=== PATIENT | female | born 1945 | race Caucasian/White ===

== ENCOUNTER 2023-10-09 14:26 | Outpatient (CLI) | payer MEDICARE, OTHER, SELFPAY ==
[2023-10-09 14:55] LABS: Basophils # 0.1 K/mm3 (0-0.2); Basophils % 0.6 % (0.1-2.0); Eosinophils # 0.2 K/mm3 (0.0-0.4); Eosinophils % 2.9 % (0.1-12.0); Hematocrit 42.6 % (37.0-47.0); Hemoglobin 13.3 g/dL (12.2-16.2); Lymphocytes % 13.3 % (10-50); Mean Corpuscular HGB Conc 31.2 g/dL (31.8-35.4); Mean Corpuscular Hemoglobin 28.7 pg (27.0-31.2); Mean Corpuscular Volume 91.8 fl (81-99); Mean Platelet Volume 8.5 fl (7.4-10.4); Monocytes # 0.3 K/mm3 (0.1-1.0); Neutrophils % 79.1 % (37.0-80.0); Platelet Count 215 K/mm3 (142-424); Red Blood Count 4.64 M/mm3 (4.20-5.40); Red Cell Distribution Width 15.4 % (11.5-17.5); White Blood Count 7.6 K/mm3 (4.8-10.8)
[2023-10-09 15:45] LABS: Alanine Aminotransferase 16 U/L (12-78); Albumin Level 4.4 g/dl (3.5-5.0); Alkaline Phosphatase 106 U/L (38-126); Anion Gap 16.4 mEq/L (5-15); Aspartate Amino Transferase 29 U/L (14-36); Bilirubin,Indirect 0.6 mg/dL (0.0-0.9); Bilirubin,Total 0.6 mg/dl (0.2-1.3); Bilirubin,Unconjugated 0.7 mg/dL (0.0-1.1); Blood Urea Nitrogen 23 mg/dl (7-17); Calcium 9.8 mg/dl (8.4-10.2); Carbon Dioxide 25 mmol/L (22.0-30.0); Chloride 105 mmol/L (98-107); Chol/HDL Ratio 3.4 (1-3.5); Cholesterol 124 mg/dl (140-200); Estimated Glomerular Filt Rate 48 ml/min (>60); GFR (African American) 58 ML/MIN (>60); Glucose 86 mg/dl (74-100); HDL Cholesterol 36 mg/dl (40-60); Magnesium 2.1 mg/dl (1.6-2.3); Potassium 4.4 mmoL/L (3.5-5.1); Sodium 142 mmol/L (136-145); Total Protein,Serum 7.4 g/dl (6.3-8.2); Triglycerides 148 mg/dl (30-150); VLDL Cholesterol 30 mg/dL (0-40)
[2023-10-09 15:56] LABS: Direct LDL Cholesterol 63.81 mg/dL (100-129)
[2023-10-09 16:00] LABS: Free T4 (Free Thyroxine) 1.12 ng/dl (0.78-2.19)
[2023-10-09 16:15] LABS: Thyroid Stimulating Hormone 0.35 uIU/mL (0.465-4.68)
[2023-10-21 14:11] LABS: Metanephrine Plasma < 25.0 pg/mL (0.0-88.0); Normetanephrine Plasma 46.5 pg/mL (0.0-285.2)
[2023-11-02 10:25] LABS: Renin 4.549
== END 2023-10-09 23:59 | disposition home or self-care (01) ==
LOC: LAB 14:28
PROVIDERS: PCP Nurse Practitioner Family; Visit Provider Internal Medicine
DX: R42 Dizziness and giddiness (principal); R53.83 Other fatigue; R00.2 Palpitations; I34.81 Nonrheumatic mitral (valve) annulus calcification; R06.09 Other forms of dyspnea; R94.31 Abnormal electrocardiogram [ECG] [EKG]; I10 Essential (primary) hypertension; E11.9 Type 2 diabetes mellitus without complications; Z79.4 Long term (current) use of insulin; Z79.84 Long term (current) use of oral hypoglycemic drugs
CPT/HCPCS: 36415; 80048; 80061; 80076; 82088; 82384; 83735; 83835; 84244; 84439; 84443; 85025

== ENCOUNTER → 2023-10-10 08:59 | Outpatient (CLI) | payer MEDICARE, OTHER, SELFPAY | LOC: SL 09:02 | PROVIDERS: PCP Nurse Practitioner Family; Visit Provider Nurse Practitioner Family | DX: G47.30 Sleep apnea, unspecified (principal); R06.83 Snoring; R40.0 Somnolence | CPT/HCPCS: G0399 ==

== ENCOUNTER 2023-10-15 15:40 | Outpatient (CLI) | payer MEDICARE, OTHER, SELFPAY | END 2023-10-15 23:59 | disposition home or self-care (01) | LOC: RT 15:43 | PROVIDERS: PCP Internal Medicine Adolescent Medicine; Visit Provider Internal Medicine | DX: R00.2 Palpitations (principal) ==

== ENCOUNTER 2023-10-21 12:07 | Outpatient (CLI) | payer MEDICARE, OTHER, SELFPAY ==
[2023-10-21 13:32] LABS: Basophils % 0.6 % (0.1-2.0); Eosinophils # 0.2 K/mm3 (0.0-0.4); Hematocrit 36.7 % (37.0-47.0); Hemoglobin 13.4 g/dL (12.2-16.2); Lymphocytes # 0.8 K/mm3 (0.7-4.5); Lymphocytes % 13.6 % (10-50); Mean Corpuscular HGB Conc 36.4 g/dL (31.8-35.4); Mean Corpuscular Hemoglobin 33.4 pg (27.0-31.2); Mean Corpuscular Volume 91.8 fl (81-99); Mean Platelet Volume 8.2 fl (7.4-10.4); Monocytes # 0.3 K/mm3 (0.1-1.0); Monocytes % 4.6 % (1.7-9.3); Neutrophils # 4.5 K/mm3 (1.8-7.8); Neutrophils % 77.3 % (37.0-80.0); Platelet Count 238 K/mm3 (142-424); Red Cell Distribution Width 15.3 % (11.5-17.5); White Blood Count 5.9 K/mm3 (4.8-10.8)
[2023-10-21 14:04] LABS: Alanine Aminotransferase 19 U/L (12-78); Albumin Level 4.1 g/dl (3.5-5.0); Alkaline Phosphatase 105 U/L (38-126); Anion Gap 15.9 mEq/L (5-15); Aspartate Amino Transferase 24 U/L (14-36); Bilirubin,Indirect 0.6 mg/dL (0.0-0.9); Bilirubin,Total 0.6 mg/dl (0.2-1.3); Bilirubin,Unconjugated 0.6 mg/dL (0.0-1.1); Blood Urea Nitrogen 35 mg/dl (7-17); Calcium 9.8 mg/dl (8.4-10.2); Carbon Dioxide 26 mmol/L (22.0-30.0); Chloride 99 mmol/L (98-107); Chol/HDL Ratio 3.7 (1-3.5); Cholesterol 134 mg/dl (140-200); Estimated Glomerular Filt Rate 44 ml/min (>60); GFR (African American) 53 ML/MIN (>60); Glucose 214 mg/dl (74-100); HDL Cholesterol 36 mg/dl (40-60); Magnesium 2.1 mg/dl (1.6-2.3); Potassium 4.9 mmoL/L (3.5-5.1); Sodium 136 mmol/L (136-145); Total Protein,Serum 7.2 g/dl (6.3-8.2); Triglycerides 209 mg/dl (30-150); VLDL Cholesterol 42 mg/dL (0-40)
[2023-10-21 14:21] LABS: Free T4 (Free Thyroxine) 1.02 ng/dl (0.78-2.19)
[2023-10-21 14:36] LABS: Thyroid Stimulating Hormone 0.38 uIU/mL (0.465-4.68)
[2023-10-24 06:51] LABS: Dopamine, Plasma < 30 pg/mL (0-48); Epinephrine, Plasma 35 pg/mL (0-62); Norepinephrine, Plasma 333 pg/mL (0-874)
[2023-10-28 15:10] LABS: Normetanephrine Plasma 67.6 pg/mL (0.0-285.2)
[2023-12-09 09:57] LABS: Renin Activity, Plasma 12.373
== END 2023-10-21 23:59 | disposition home or self-care (01) ==
LOC: LAB 12:09
PROVIDERS: PCP Internal Medicine Adolescent Medicine; Visit Provider Internal Medicine
DX: I10 Essential (primary) hypertension (principal); R06.02 Shortness of breath; R42 Dizziness and giddiness; R53.83 Other fatigue; R00.2 Palpitations; I34.81 Nonrheumatic mitral (valve) annulus calcification; E13.9 Other specified diabetes mellitus without complications; R94.31 Abnormal electrocardiogram [ECG] [EKG]
CPT/HCPCS: 36415; 80048; 80061; 80076; 82088; 82384; 83735; 83835; 84244; 84439; 84443; 85025

== ENCOUNTER 2023-10-23 07:41 | Outpatient (CLI) | payer MEDICARE, OTHER, SELFPAY ==
[2023-10-23] VITALS (7 sets, daily range): BP systolic 128–176; BP diastolic 67–86; PULSE 50–84; RESP 16; O2SAT 95–97; BMI 34.0
--- NOTE | 2023-10-23 07:41 | CA_ITS ---
APPROVED REPORT EXAM: Comprehensive 2D, Doppler, and color-flow Echocardiogram Manager Event: PAM Carcamo, RVS Ht: 5 ft 2 in Wt: 186lbs BSA: 1.85 BP: 213/103 mmHg Indications: SOB, Palpitations, Abn EKG, Melanoma, HTN, DM, Fatigue 2D Dimensions Left Atrium 3.20 cm LA Volume 77.00 mL LA Volume Index 40.50 mL/m2 (M/F) 16-34 M-Mode Dimensions RVDd 2.28 cm (0.9-2.6) LA Diam 2.17 cm (1.9-4.0) LVDd 5.38 cm (3.5-5.7) LVDs 3.56 cm (3.5-5.7) IVSd 0.99 cm (0.6-1.1) PWd 1.02 cm (0.6-1.1) EF (Teich) 62.20% EPSs 2.00 cm FS 33.80% EDV (Teich) 140.10 mL TAPSE 1.26 (<1.7) ESV (Teich) 53.00 mL LV Diastology E Decel Time 247 (160-240 msec) E/A Ratio 0.64 MED A' 9.70 cm/s LAT A' 11.10 cm/s Aortic Valve JALEN Index 1.25 cm2/m2 AoV Peak Jose. 129.0 (50-130 cm/s) AO Peak GR. 6.60 mmHg AO Mean GR. 3.40 (<5 mmHg) AO VTI 26.1 (18-25 cm) JALEN (VTI) 2.38 (2.5-4.5 cm2) Mitral Valve MV A Velocity 131.0 (40-130 cm/s) E/A Ratio 0.64 MV Mean Gr. 2.80 (<2mmHg) Pulmonary Valve PV Peak Velocity 94.0 (50-150 cm/s) Tricuspid Valve TR P. Velocity 205.00 cm/s RAP Estimate 10.00 mmHg RVSP 26.80 mmHg Left Ventricle The left ventricle is normal size. The left ventricular systolic function is normal. The left ventricular ejection fraction is within the normal range. There is increased LV wall thickness. There is normal LV segmental wall motion. Transmitral Doppler flow pattern suggests impaired LV relaxation. LVEF is 60%. Right Ventricle The right ventricle is normal size. The right ventricular systolic function is normal. Atria Left atrium is moderately dilated. The right atrium size is normal. There is no Doppler evidence of interatrial shunt. Aortic Valve The aortic valve is mildly thickened. There is no aortic valvular stenosis. Trace aortic regurgitation. Mitral Valve Moderate mitral annular calcification. The mitral valve leaflets are mildly thickened. No evidence of mitral valve stenosis. Mean MV gradient 3 mmHg (HR 80 bpm). Trace mitral regurgitation. Tricuspid Valve The tricuspid valve leaflets are thin and pliable. Trace tricuspid regurgitation. RVSP is 15-20 mmHg. Pulmonic Valve The pulmonary valve is normal in structure. Trace pulmonic regurgitation. Great Vessels The aortic root is normal in size. The ascending aorta is not well-visualized. IVC is normal in size and collapses >50% with inspiration. Pericardium There is no pericardial effusion. Other Information Study Quality: Fair Conclusion Normal biventricular systolic function. Moderate LA dilation. Moderate mitral annular calcification. No significant valvular stenosis or regurgitation. Electronically signed by : Jena Marshall MD 10/29/2023 11:05:52
--- NOTE | 2023-10-23 08:11 | CT_ITS ---
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 A noncontrast coronary calcium scan was performed. A CT attenuation threshold of 130 Hounsfield units (HU) was used for the detection of calcium in contiguous voxels of 1 sq mm in area to be counted as individual lesions. Bolus tracking in the ascending aorta with a threshold of 180 HU was performed. Immediately afterwards, ECG synchronized cardiac CT was then performed from the cardiac base to apex using retrospective gating with ECG tube current modulation. A total of 85 mL of Isovue 370 mg/mL contrast medium was administered at 5 mL/sec followed by a saline flush using a biphasic injection protocol. A tube voltage of 120 KVp was used. The patient received the following medications prior to the cardiac CT. 25 mg of oral metoprolol 15 mg of oral ivabradine 0.8 mg of sublingual nitroglycerin The average heart rate at the time of acquisition was 56 bpm and regular. Image Reconstruction Transaxial images were reconstructed at 0.67 mm slide thickness. Data was reviewed interactively on an advanced workstation capable of 2 and 3-dimensional displays in all conventional reconstruction formats, including multiplanar reformations, maximum intensity projections, curved multiplanar reformations, and volume rendered reconstructions. When applicable, selected routine images describing the relevant coronary anatomy and pathology were saved and sent to PACS. Complications None Technical Quality Overall image quality was poor due to significant motion Coronary artery opacification was suboptimal. Total DLP (Dose-Length Product) is 2521.2 mGy-cm. The reported value represents the total of one or more individual components during the CT acquisition of this date and at this time, and as such, the same value may appear in more than one CT report depending on the interpreting/reporting physicians. COMPARISON None FINDINGS CT Coronary Calcium Scoring LMA (Left Main Artery) = 0 LAD (Left Anterior Descending) = 214 LCX (Left Coronary Circumflex) = 104 RCA (Right Coronary Artery) = 296 Total Calcium Score = 614 using the AJ-130 method. The observed calcium score of 614 is at 87th percentile for subjects of the same age, sex, and race/ethnicity. The interpretation of the calcium heart score is based on the following continuum*: 0 = no calcified plaque detected (risk of coronary artery disease is very low ??? less than 5%) 1-10 = calcium detected in extremely minimal levels (risk of coronary diseases is still low ??? less than 10%) 11-100 = mild levels of plaque detected with certainty (mild or minimal narrowing of heart arteries is likely) 101-400 = definite,at least moderate levels of plaque detected (relatively high risk of a heart attack within 3-5 years) >401-999 = extensive levels of plaque detected (high risk of heart attack, high levels of vascular disease are present, high likelihood of at least one significant coronary narrowing) *The calcium heart score quantifies the burden of coronary calcification/plaque in the coronary arteries. The calcium heart score is not able to evaluate the presence or burden of non-calcified (i.e. soft) plaque. There is also identifiable calcification in the mitral annulus or mitral valve and the ascending and descending thoracic aorta. Coronary CT Angiography The coronary arterial system is right dominant. Quantitative Stenosis Grading: Left Main (LM): The left main originates normally from the left sinus of Valsalva. The LM bifurcates into the left anterior descending artery and left circumflex artery. The LM is patent with no evidence of atherosclerosis. Left Anterior Descending (LAD) and Diagonal Branches: The LAD gives off 3 diagonal branch(es). There is mixed calcified/noncalcified plaque in the proximal LAD segment with up to 70-90% luminal stenosis. There is no evidence of LAD-myocardial bridge. Left Circumflex (LCX) and Obtuse Marginals (OM): The LCX gives off 1 Obtuse Marginal (OM) branch(es). There is mixed calcified/noncalcified plaque in the proximal and mid LCx segments, with up to 70-90% luminal stenosis. Right Coronary Artery (RCA): The RCA originates normally from the right sinus of Valsalva. The RCA gives off a posterior descending artery (PDA) and posterolateral (PL) branches. There is calcified plaque in the ostial RCA, as well as mixed calcified/noncalcified plaque in the proximal RCA segment. However, the remainder of the RCA cannot be well-visualized due to significant motion. Non-Coronary Cardiac Findings: Analysis of the left ventricular (LV) structure and function was performed after 3-D reconstruction of the LV from axial images, with user-corrected automatic contouring for assessment of LV volumes and user-defined reconstruction from oblique planes for measurement of 3-D cardiac structure and function. -The left ventricle systolic function is normal. -There is no left atrial appendage filling defect. Two right pulmonary veins and two left pulmonary veins drain normally into the left atrium. -No pericardial thickening or calcification. -Central and branch pulmonary arteries in the [id number] are unremarkable. -Thoracic aorta within the visualized thoracic aortic-branches in the [id number] is unremarkable. Extracardiac Structures No significant extra-cardiac findings. Note, however, that this study is focused on the cardiac findings. IMPRESSION -Technically difficult study due to significant motion and inability to visualize portions of the coronary tree. -Presence of coronary calcification with an Agatston score = 614 using the AJ-130 method. -The observed calcium score of 614 is at 87th percentile for subjects of the same age, sex, and race/ethnicity. -Multivessel atherosclerotic coronary disease, with significant flow-limiting atherosclerosis of the LAD and the LCx. The RCA also likely has significant atherosclerosis in the proximal region, but is not well-visualized due to significant motion. -CAD-RADS 4B. Management recommendations per ACC/AHA guidelines*, as clinically appropriate. *Recommendations: CAD RADS 0: Reassurance. Consider non-atherosclerotic causes of chest pain. CAD RADS 1: Consider non-atherosclerotic causes of chest pain. Consider preventive therapy and risk factor modification. CAD RADS 2: Consider non-atherosclerotic causes of chest pain. Consider preventive therapy and risk factor modification, particularly for patients with nonobstructive plaque in multiple segments. CAD RADS 3: Consider further functional testing. Consider symptom-guided anti-ischemic and preventive pharmacotherapy as well as risk factor modification per published guideline statements. CAD RADS 4A: Consider further functional testing or invasive coronary angiography with revascularization per published guideline statements. Consider symptom-guided anti-ischemic and preventive pharmacotherapy as well as risk factor modification per published guideline statements. CAD RADS 4B: Invasive coronary angiography recommended with revascularization per published guideline statements. Consider symptom-guided anti-ischemic and preventive pharmacotherapy as well as risk factor modification per published guideline statements. CAD RADS 5: Consider invasive angiography and/or viability assessment with revascularization per published guideline statements. Consider symptom-guided anti-ischemic and preventive pharmacotherapy as well as risk factor modification per published guideline statements. CRITICAL RESULT None COMMUNICATION Per this written report The coronary and cardiac findings of this CCTA were reviewed, reported, and signed by Haseeb Marshall MD (Panel Builder) Conclusion Electronically signed by : Jena Marshall MD 10/28/2023 12:17:51
[2023-10-23] MEDS: METOPROLOL TARTRATE 25MG TABLET 25 MG (09:00)
[2023-10-23] MEDS: IVABRADINE HCL 7.5MG TABLET PO (09:00)
[2023-10-23 09:04] LABS: POC Glucose,Bedside 125 (70-110)
[2023-10-23] MEDS: NITROGLYCERIN 0.4MG SL TABLET SL (09:27)
[2023-10-23] MEDS: METOPROLOL TARTRATE 5MG/5ML VIAL 5 MG IV (09:33)
[2023-10-23] MEDS: 0.9 % SODIUM CHLORIDE 50 ML VIAL IV (09:59)
[2023-10-23] MEDS: IOPAMIDOL-370 (76%);100ML BOTTLE 85 ML IV (09:59)
[2023-10-23] MEDS: SODIUM CHLORIDE 0.9% 10ML SYR (RAD ONLY) 10 ML IV (09:59)
== END 2023-10-23 10:30 | disposition home or self-care (01) ==
LOC: RT 07:41 → RAD 08:42
PROVIDERS: PCP Internal Medicine Adolescent Medicine; Visit Provider Internal Medicine
DX: R42 Dizziness and giddiness (principal); R53.83 Other fatigue; R00.2 Palpitations; I34.81 Nonrheumatic mitral (valve) annulus calcification; R06.09 Other forms of dyspnea; R94.31 Abnormal electrocardiogram [ECG] [EKG]; I10 Essential (primary) hypertension; R06.02 Shortness of breath; E11.9 Type 2 diabetes mellitus without complications; Z79.84 Long term (current) use of oral hypoglycemic drugs
CPT/HCPCS: 75574; 82962; 93306; Q9967

== ENCOUNTER 2023-11-20 08:28 | Day surgery (SDC) | payer MEDICARE, OTHER, SELFPAY ==
[2023-11-20] VITALS (14 sets, daily range): BP systolic 116–191; BP diastolic 54–98; PULSE 72–89; RESP 16–20; TEMP 36.6–36.7; O2SAT 92–99; BMI 34.2
--- NOTE | 2023-11-20 07:08 | IR_ITS ---
APPROVED REPORT Patient Location: Outpatient Nurse Practitioner Physician Assistant: HEIDY Young RT (R) PROCEDURES Left heart catheterization Left ventriculogram Selective coronary angiogram Drug-eluting stent deployment to the proximal and mid LAD Drug-eluting stent deployment to the circumflex arteries first obtuse marginal artery Drug-eluting stent deployment to the proximal and mid dominant right coronary Intravascular ultrasound of the right coronary INDICATION Coronary artery disease, Abnormal CCTA, IVUS guidance for complex angiography/stenting Informed consent was obtained prior to the procedure. COMPLICATIONS NONE Estimated Blood Loss: LESS THAN 10 ML TECHNIQUE One percent lidocaine used to anesthetize the right anterior aspect of the wrist. The right radial artery was accessed via the Seldinger technique. A 6 Mal[place]ian sheath was placed in the right radial artery. 2.5 mg of Verapamil, 800 mcg of nitroglycerin, 1mg Lidocaine and 5000 U Heparin were given through the arterial sheath. The papa catheter was also used to perform left heart catheterization, left ventriculogram and selective coronary angiogram. At the end of the diagnostic angiogram therapeutic heparin was administered giving a therapeutic ACT and the guide catheter was placed in left main artery followed by Choice PT extra-support wire placed down the LAD. A 2.25 x 38 mm [place] frontier stent was deployed at 16 stepan reducing the stenosis to 0%. An additional 2.5 x 22 mm [place] frontier stent was placed proximal to the for stent yet still overlapping and deployed at 20 stepan reducing the stenosis to 0%. An additional Choice PT extra-support wire was placed into the circumflex artery and first obtuse marginal artery. A 3 mm x 18 mm Sy frontier stent was deployed at 20 stepan reducing the stenosis. An additional 3 mm x 10 mm compliant balloon was deployed at 20 stepan to post dilate. LISA-3 flow was present down the LAD and the circumflex artery before and after the procedure. Following this the catheter was placed into the right coronary artery followed by Choice PT extra-support wire placed distally. A 3 mm x 38 mm Sy frontier stent was deployed at 20 stepan in the mid right coronary reducing the stenosis. An additional 3.5 x 38 mm Sy frontier stent was placed proximal to the for stent yet still overlapping and deployed at 20 stepan. A 3.5 x 20 mm noncompliant balloon was advanced over a guide liner and dilated to 24 and 26 stepan to dilate the proximal and midportion of the stent. Intravascular ultrasound probe was advanced which demonstrated the stent had been undersized without good stent apposition therefore the high inflation was made to post dilate. 800 mcg of intracoronary nitroglycerin was administered. LISA-3 flow was present before and after the procedure. At the end the procedure the apparatus was removed the sheath was removed good hemostasis was achieved using TR banding patient was transferred to the postop putting in stable condition ANGIOGRAPHIC RESULTS The left main artery Normal The left anterior descending artery Has proximal concentric 30% stenosis with additional mid vessel greater than 90% stenoses throughout the mid segment. The first diagonal artery is patent and has proximal 60 to 70% stenosis. The circumflex artery 's large codominant and has an 80 to 90% stenosis in the ostial proximal segment of the large first obtuse marginal artery. The second obtuse marginal artery has 30% stenoses The right coronary artery This codominant and has proximal 80% and mid vessel complex diffuse 80 to 90% stenoses The VALDERRAMA ventriculogram reveals Normal 65% The left ventricular end-diastolic pressure 20 mmHg IMPRESSION Severe three-vessel coronary disease as described above Successful stenting of the proximal to mid LAD severe disease reduced to 0% with 2 contiguous drug-eluting stents Successful stenting of a large first obtuse marginal artery severe disease reduced to 0% with 1 drug-eluting stent Successful stenting of the ostial proximal and mid codominant right coronary severe disease reduced to less than 10% with 2 contiguous drug-eluting stents Normal ejection fraction Elevated LVEDP PLAN 1. Plavix 75 mg daily plus aspirin 81 mg daily 2. LDL less than 55 to proceed with high intensity statin 3. Avoidance of tobacco products 4. Better control of hypertension 5. Cardiac rehabilitation 6. Tight control of diabetes Electronically signed by : Neil Burgess MD 11/20/2023 11:26:17
[2023-11-20 09:00] LABS: Basophils # 0.1 K/mm3 (0-0.2); Basophils % 0.6 % (0.1-2.0); Eosinophils # 0.2 K/mm3 (0.0-0.4); Hemoglobin 13.7 g/dL (12.2-16.2); Lymphocytes % 9.7 % (10-50); Mean Corpuscular HGB Conc 31.9 g/dL (31.8-35.4); Mean Corpuscular Hemoglobin 30.3 pg (27.0-31.2); Mean Corpuscular Volume 94.9 fl (81-99); Mean Platelet Volume 9.1 fl (7.4-10.4); Monocytes # 0.4 K/mm3 (0.1-1.0); Monocytes % 3.7 % (1.7-9.3); Neutrophils # 8.2 K/mm3 (1.8-7.8); Platelet Count 194 K/mm3 (142-424); Red Blood Count 4.54 M/mm3 (4.20-5.40); Red Cell Distribution Width 15.9 % (11.5-17.5); White Blood Count 9.7 K/mm3 (4.8-10.8)
[2023-11-20 09:11] LABS: Anion Gap 13.2 mEq/L (5-15); Blood Urea Nitrogen 28 mg/dl (7-17); Calcium 9.5 mg/dl (8.4-10.2); Carbon Dioxide 26 mmol/L (22.0-30.0); Chloride 106 mmol/L (98-107); Creatinine Clearance Estimated 53 mL/min (50-200); Estimated Glomerular Filt Rate 44 ml/min (>60); GFR (African American) 53 ML/MIN (>60); Glucose 67 mg/dl (74-100); Potassium 4.2 mmoL/L (3.5-5.1); Sodium 141 mmol/L (136-145)
[2023-11-20] MEDS: VERAPAMIL 2.5MG/ML 2ML VIAL 2.5 MG IV (10:26)
[2023-11-20] MEDS: HEPARIN 1,000 UNITS/ML 10ML VIAL (CATH LAB) 10000 UNIT IV (10:26)
[2023-11-20] MEDS: 0.9 % SODIUM CHLORIDE 500 ML 25 ML IV (10:26)
[2023-11-20] MEDS: NITROGLYCERIN 800MCG/8ML SYR (CATH LAB) 800 MCG IA (10:27)
[2023-11-20] MEDS: LIDOCAINE 1% 10ML MDV 20 ML IJ (10:28)
[2023-11-20] MEDS: MIDAZOLAM HCL 1MG/1ML 5ML VIAL 1 MG IV (10:29)
[2023-11-20] MEDS: FENTANYL 100MCG/2ML VIAL 50 MCG IV (10:30)
[2023-11-20] MEDS: diphenhydrAMINE 50MG/ML VIAL 50 MG IV (10:30)
[2023-11-20] MEDS: HEPARIN 1,000 UNITS/500ML NS (CATH LAB) 3000 UNIT IV (10:31)
[2023-11-20] MEDS: LABETALOL 20MG/4ML SYRINGE 20 MG IV (11:08)
[2023-11-20] MEDS: CLOPIDOGREL 300MG TABLET 600 MG PO (11:42)
[2023-11-20] MEDS: ACETAMINOPHEN 500MG TAB 1000 MG PO (12:14)
[2023-11-20] MEDS: IOPAMIDOL-370 (76%);100ML BOTTLE 210 ML IV (16:04)
[2023-11-20 16:07] LABS: CATHL Activated Clotting Time 325 SEC (74-125)
== END 2023-11-20 15:28 | disposition home or self-care (01) ==
PROVIDERS: PCP Internal Medicine Adolescent Medicine; Visit Provider Internal Medicine
DX: R93.1 Abnormal findings on diagnostic imaging of heart and coronary circulation (principal); R06.02 Shortness of breath; R94.31 Abnormal electrocardiogram [ECG] [EKG]; R53.83 Other fatigue; I25.118 Atherosclerotic heart disease of native coronary artery with other forms of angina pectoris; Z79.899 Other long term (current) drug therapy; I10 Essential (primary) hypertension; E11.9 Type 2 diabetes mellitus without complications; I34.81 Nonrheumatic mitral (valve) annulus calcification; I44.1 Atrioventricular block, second degree
CPT/HCPCS: 80048; 85025; 85347; 92928; 92929; 92978; 93458; 99152; 99153; C1725; C1769; C1874; C9600; C9601; J1200; J1644; J2250; J3010; Q9967

== ENCOUNTER 2023-11-21 14:16 | Outpatient (CLI) | payer MEDICARE, OTHER, SELFPAY ==
[2023-11-21 14:52] LABS: Basophils % 0.5 % (0.1-2.0); Eosinophils # 0.3 K/mm3 (0.0-0.4); Eosinophils % 3.2 % (0.1-12.0); Hematocrit 39.1 % (37.0-47.0); Hemoglobin 12.5 g/dL (12.2-16.2); Lymphocytes # 0.8 K/mm3 (0.7-4.5); Lymphocytes % 9.9 % (10-50); Mean Corpuscular HGB Conc 31.9 g/dL (31.8-35.4); Mean Corpuscular Hemoglobin 29.9 pg (27.0-31.2); Mean Corpuscular Volume 93.6 fl (81-99); Mean Platelet Volume 8.7 fl (7.4-10.4); Monocytes # 0.4 K/mm3 (0.1-1.0); Monocytes % 5.4 % (1.7-9.3); Neutrophils # 6.5 K/mm3 (1.8-7.8); Neutrophils % 80.9 % (37.0-80.0); Platelet Count 202 K/mm3 (142-424); Red Blood Count 4.18 M/mm3 (4.20-5.40); Red Cell Distribution Width 16.2 % (11.5-17.5)
[2023-11-21 15:19] LABS: Anion Gap 14.7 mEq/L (5-15); Blood Urea Nitrogen 32 mg/dl (7-17); Carbon Dioxide 23 mmol/L (22.0-30.0); Chloride 107 mmol/L (98-107); Estimated Glomerular Filt Rate 36 ml/min (>60); GFR (African American) 44 ML/MIN (>60); Glucose 160 mg/dl (74-100); Potassium 4.7 mmoL/L (3.5-5.1); Sodium 140 mmol/L (136-145)
== END 2023-11-21 23:59 | disposition home or self-care (01) ==
LOC: LAB 14:18
PROVIDERS: PCP Internal Medicine Adolescent Medicine; Visit Provider Internal Medicine
DX: I10 Essential (primary) hypertension (principal)
CPT/HCPCS: 36415; 80048; 85025

== ENCOUNTER 2023-11-27 10:30 | Outpatient (CLI) | payer MEDICARE, OTHER, SELFPAY | END 2023-11-27 23:59 | disposition home or self-care (01) | LOC: RT 10:31 | PROVIDERS: PCP Internal Medicine Adolescent Medicine; Visit Provider Physician Assistant | DX: I48.91 Unspecified atrial fibrillation (principal) | CPT/HCPCS: 93270 ==

== ENCOUNTER 2023-12-27 08:50 | Day surgery (SDC) | payer MEDICARE, OTHER, SELFPAY ==
[2023-12-27] VITALS (8 sets, daily range): BP systolic 138–186; BP diastolic 75–93; PULSE 70–88; RESP 16–20; TEMP 36.9; O2SAT 90–98; BMI 33.8
--- NOTE | 2023-12-27 07:20 | IR_ITS ---
APPROVED REPORT Patient Location: Outpatient Devops: HEIDY Young RT (R) PROCEDURES 1. Pocket formation for Permanent Pacemaker Placement. 2. Placement of an atrial sensing and pacing coil into the right atrial appendage. 3. Placement of a ventricular sensing and pacing coil in the right ventricular apex. 4. Permanent Pacemaker Placement. INDICATION First degree AV Block, Intermittant Mobitz II, Symptomatic bradycardia, Tachy Barry Syndrome Informed consent was obtained prior to the procedure. COMPLICATIONS NONE Estimated Blood Loss: LESS THAN 10 ML TECHNIQUE 1% Lidocaine with epinephrine used to anesthetized the left anterior aspect of the chest. Scalpel was used to make the initial cutaneous incision while electrocautery was used to dissect down tinto the fascia. The fascia was lifted off the pectoralis muscle and digitally manipulated creating a pocket for the pacemaker. The patient was then placed in Trendelenburg position and the subclavian vein was accessed twice via the Selinger technique, there are two wires in the vein. A 6 British sheath was placed under fluoroscopic guidance into the subclavian vein over one of the wires while keeping the other wire in place within the subclavian vein. The dilator was removed from the sheath. Using fluoroscopic guidance, the ventricular lead was placed into the right ventricular apex, screwed and secured into place. Electronic interrogation proved acceptable thresholds and voltage within the lead. Using 3-0 silk, the ventricular lead was then secured into place. Lead was secured to the facia using the 3-0 silk. Following this, the sheath was pealed away. An additional 6 British fresh sheath and dilator was placed over the existing wire. Using fluoroscopic guidance, the atrial lead was the placed into the right atrial appendage and screwed and secured in place. Electrical interrogation demonstrated acceptable thresholds and voltage number. The atrial lead was then secured into place using 3-0 silk. 1 gram of Ancef was used to flush the pocket. Following the pacemaker generator being secured to the fascia and in place, Monocryl was used to close the subcutaneous layers while guillermo were used to close the cutaneous layer. A pressure dressing was placed and the patient was transferred to the postop holding area in stable condition for postoperative care. INTERROGATION Generator Model number: Project [employer] [id number] Generator Serial number: [id number] Atrial lead model number: Douglas [facility] 8TC Atrial lead serial number: [id number] P-wave: 3 mV Impedance: 480 Ohms Threshold: 1.25V @ 0.4ms Right Ventricular lead model number: Douglas [facility] 2087TC Right Ventricular lead serial number: [id number] R-wave: 7 mV Impedance: 700 Ohms Threshold: 0.5V @ 0.4 ms Pacing Parameters: Mode: DDDR Base/Max Track:60 ppm / 130 ppm No diaphragmatic stimulation at 10 volts. IMPRESSION 1. Successful pocket formation for Permanent Pacemaker Placement. 2. Successful placement of an atrial sensing and pacing coil into the right atrial appendage. 3. Successful placement of a ventricular sensing and pacing coil in the right ventricular apex. 4. Successful permanent Pacemaker Placement. PLAN 1. Postop wound care. Electronically signed by : Neil Burgess MD 12/27/2023 15:40:00
[2023-12-27 09:32] LABS: Basophils % 0.5 % (0.1-2.0); Eosinophils # 0.3 K/mm3 (0.0-0.4); Eosinophils % 3.3 % (0.1-12.0); Hematocrit 45.4 % (37.0-47.0); Lymphocytes % 13.3 % (10-50); Mean Corpuscular HGB Conc 30.8 g/dL (31.8-35.4); Mean Corpuscular Hemoglobin 29.7 pg (27.0-31.2); Mean Corpuscular Volume 96.5 fl (81-99); Mean Platelet Volume 8.3 fl (7.4-10.4); Monocytes # 0.3 K/mm3 (0.1-1.0); Monocytes % 4.6 % (1.7-9.3); Neutrophils # 5.8 K/mm3 (1.8-7.8); Neutrophils % 78.2 % (37.0-80.0); Platelet Count 230 K/mm3 (142-424); Red Blood Count 4.71 M/mm3 (4.20-5.40); Red Cell Distribution Width 15.6 % (11.5-17.5); White Blood Count 7.4 K/mm3 (4.8-10.8)
[2023-12-27 09:49] LABS: Anion Gap 13.2 mEq/L (5-15); Blood Urea Nitrogen 26 mg/dl (7-17); Calcium 9.5 mg/dl (8.4-10.2); Carbon Dioxide 24 mmol/L (22.0-30.0); Chloride 109 mmol/L (98-107); Creatinine Clearance Estimated 57 mL/min (50-200); Estimated Glomerular Filt Rate 48 ml/min (>60); GFR (African American) 58 ML/MIN (>60); Glucose 91 mg/dl (74-100); Potassium 4.2 mmoL/L (3.5-5.1); Sodium 142 mmol/L (136-145)
--- NOTE | 2023-12-27 10:24 | EXP.ANES.CKL ---
[facility] Disclaimer: The information contained in this section may have been updated after the patient was seen, as this information can be updated by other users. Medical History Coronary artery disease Atypical angina Abnormal findings on diagnostic imaging of heart and coronary circulation Wenckebach second degree AV block SOB (shortness of breath) Melanoma Cholecystectomy planned Calcification of mitral valve Diabetes Hypertension Surgical History History of coronary artery stent placement History of appendectomy H/O: hysterectomy History of mastectomy Family History Mother Cancer Sister Cancer Grandfather Coronary artery disease Diabetes Father Coronary artery disease Heart attack Hypertension Social History Smoking Status: Never smoker alcohol intake: never substance use type: denies use current occupational status: retired Travel in the last 8 weeks: None [facility] Anesthesia Checklist Patient Identification Patient Identification: Arm Band Structural Data Admitted From: Inpatient Planned Operative Procedure/s: Pacemaker placement Consent for Planned Operative Procedure(s) Verified: Yes Verified Documents: Surgical Consent and History and Physical NPO Status Verified Time NPO: 00:00 Additional verifications Patient : No Anesthesia Reactions: No Hx Blood Transfusions: No Blood Transfusion Reaction: No Cephalosporin Allergy: No Previous Colonoscopy: Yes Airway Assessment Mallampati Score:: Class III C-Spine Mobility Assessed: Yes Dentition: Good Dentition Neurological Assessment Level of Consciousness: Awake, Alert, Appropriate and Follows Commands Hx Seizures: No Numbness or tingling in extremities: No Anesthesia Plan Anesthesia Risk discussed: Yes ASA Class: III Anesthesia Type: MAC Preoperative Comments Pre-Operative Comments: A-fib. Stents X5 October 20. Stage 3 renal failure, according to patient. IDDM, glu 88. PONV.
[2023-12-27] MEDS: CEFAZOLIN 1GM VIAL 1 GM TP (11:30)
[2023-12-27] MEDS: CEFAZOLIN SODIUM 1 GM in 0.9 % SODIUM CHLORIDE 50 ML IV (11:30)
--- NOTE | 2023-12-27 12:15 | XR_ITS ---
FINAL REPORT TECHNIQUE: Single view chest CLINICAL HISTORY: Confirm pacemaker/AID placement FINDINGS: A single view of the chest was obtained. The heart is enlarged. There is pulmonary vascular congestion. A left subclavian pacemaker is in place. There are mild pulmonary opacities, favor edema. There is no pneumothorax. Postoperative changes are noted of the cervical spine. IMPRESSION: Left subclavian pacemaker in place without pneumothorax. Reviewed, Interpreted and Dictated by Dougie Pizano III, MD Transcribed by Jesenia Mercado Authenticated and [facility]
== END 2023-12-27 14:15 | disposition home or self-care (01) ==
PROVIDERS: PCP Internal Medicine Adolescent Medicine; Visit Provider Internal Medicine
DX: I49.5 Sick sinus syndrome (principal); R53.83 Other fatigue; R42 Dizziness and giddiness; E11.9 Type 2 diabetes mellitus without complications; Z79.4 Long term (current) use of insulin; I25.118 Atherosclerotic heart disease of native coronary artery with other forms of angina pectoris; I34.81 Nonrheumatic mitral (valve) annulus calcification; I44.1 Atrioventricular block, second degree; Z95.5 Presence of coronary angioplasty implant and graft; I48.0 Paroxysmal atrial fibrillation; Z79.899 Other long term (current) drug therapy
CPT/HCPCS: 33208; 71045; 80048; 85025; 99152; 99153; C1785; C1898; J2704

== ENCOUNTER 2024-10-15 13:18 | Outpatient (CLI) | payer MEDICARE, OTHER, SELFPAY ==
--- NOTE | 2024-10-15 13:24 | MM_ITS ---
PROCEDURE INFORMATION: Exam: MG Left Screening 3D Mammography Exam date and time: 10/15/2024 1:39 PM Age: 79 years old Clinical indication: Screening. Personal history of right breast cancer, status post mastectomy. TECHNIQUE: Imaging protocol: Left Screening tomosynthesis and 2D mammography including computer-aided detection (CAD) when performed. COMPARISON: 1. MG JULIANO POLLO DIGITAL SCREEN UNI LEFT 07/11/2023 11:32 AM 2. MG JULIANO POLLO DIGITAL SCREEN UNI LEFT 07/09/2022 11:08 AM 3. MG JULIANO POLLO DIGITAL SCREEN UNI LEFT 07/05/2021 11:02 AM 4. MG JULIANO POLLO DIGITAL SCREEN UNI LEFT 07/04/2020 3:38 PM FINDINGS: MAMMOGRAPHY: Breast composition: There are scattered areas of fibroglandular density. Mass: Two masses: 0.8 cm subareolar, inner and upper quadrant anterior 3rd, about 2-3 cm, CC image 1026 frame 17 and MLO image 1372 frame 26; and 0.5 cm in the upper outer quadrant, middle 3rd, about 6-7 cm from the nipple, CC image 1026 frame 17 and MLO image 1372 frame 21. Architectural distortion: None. Calcifications: No suspicious calcifications. Asymmetric density: None. Skin thickening: None. Axillary adenopathy: None. Other: Pacemaker in the left axilla, limits evaluation and accentuates the importance of clinical breast exam. IMPRESSION: Patient will be recalled for left diagnostic mammography with spot compression and CC and MLO and left sonography for further evaluation of masses. ASSESSMENT: BI-RADS Category 0: Incomplete: Need Additional Imaging Evaluation.
== END 2024-10-15 23:59 | disposition home or self-care (01) ==
LOC: RAD 13:19
PROVIDERS: PCP Internal Medicine Adolescent Medicine; Visit Provider Nurse Practitioner Family
DX: Z12.31 Encounter for screening mammogram for malignant neoplasm of breast (principal); N63.42 Unspecified lump in left breast, subareolar; N63.21 Unspecified lump in the left breast, upper outer quadrant; Z95.0 Presence of cardiac pacemaker; Z85.3 Personal history of malignant neoplasm of breast; Z90.11 Acquired absence of right breast and nipple
CPT/HCPCS: 77063; 77067

== ENCOUNTER 2024-11-03 13:28 | Outpatient (CLI) | payer MEDICARE, OTHER, SELFPAY ==
--- NOTE | 2024-11-03 13:32 | US_ITS ---
PROCEDURE INFORMATION: Exam: US Left Breast, Complete MG Left Diagnostic Breast Tomosynthesis MG Left Diagnostic Mammography Exam date and time: 11/03/2024 1:41 PM Age: 79 years old Clinical indication: Left breast mass TECHNIQUE: Imaging protocol: Complete ultrasound of all four quadrants of the left breast and the retroareolar regions, including ultrasound of the axilla when performed. Left Diagnostic tomosynthesis and 2D mammography including computer-aided detection (CAD) when performed. Unilateral or bilateral exam. Left Diagnostic mammography including computer-aided detection (CAD) when performed. Unilateral exam. COMPARISON: MG MM DIG SC MAMM UNILAT LT CAD 10/15/2024 1:39 PM FINDINGS: MAMMOGRAPHY: Breast composition: There are scattered areas of fibroglandular density. Breast mammogram findings: A circumscribed oval mass is seen in the retroareolar aspect of the left breast, measuring 0.5 cm. There is no distortion or suspicious calcification. ULTRASOUND: Breast ultrasound findings: There is a circumscribed hypoechoic mass in the left breast 12 o'clock retroareolar region that measures 0.4 x 0.5 x 0.4 cm. This may represent a complicated cyst. Throughout the left breast, there are other scattered subcentimeter cysts seen. A hypoechoic mass is seen in the left breast 11 o'clock axis, 3 cm from the nipple measuring 0.5 x 0.3 x 0.9 cm. A similar hypoechoic circumscribed mass is seen in the left breast 7 o'clock axis, 2 cm from the nipple measuring 0 point 5 x 0.4 x 0.2 cm. No shadowing or distortion. No axillary adenopathy. IMPRESSION: Probably benign mass in the left breast retroareolar region as well as sonographically visualized hypoechoic masses in the left breast 11 o'clock axis and 7 o'clock axis. A six-month follow-up diagnostic mammogram and ultrasound are recommended to confirmed stability over time. ASSESSMENT: BI-RADS Category 3: Probably benign.
--- OUTSIDE RECORDS SUMMARY | 2024-11-03 13:47 | XMS_ITS | Clinical Summary ---
Author Organization [facility] Address [address] [place] [address] Care Team Providers Care Greenhouse Technician Name Role Phone Zafar Alcala MD Primary Care Provider [phone] Allergies Active Allergy Reactions Criticality Noted Date Comments Codeine Cimetidine 02/27/2011 Sulfa Antibiotics Medications allopurinol (ZYLOPRIM) 300 MG tablet Take 1 tablet by mouth daily Active albuterol (PROVENTIL HFA;VENTOLIN HFA) 108 (90 BASE) MCG/ACT inhaler Inhale 2 puffs into the lungs as needed Active CALCIUM PO Calcium ; 600mg BID Quantity: 0 Refills: 0 Ordered: 04-Nov-2015 Shannan Appiah Generic Substitution Allowed Active rosuvastatin (CRESTOR) 5 MG tablet Take 1 tablet by mouth daily 3 Active lisinopril (PRINIVIL;ZESTRI L) 40 MG tablet Take 1 tablet by mouth daily Active metoprolol succinate (TOPROL XL) 25 MG extended release tablet Take 1 tablet by mouth daily 3 Active Insulin Degludec (TRESIBA FLEXTOUCH) 200 UNIT/ML SOPN Inject 68 Units into the skin at bedtime 2 Active hydrOXYzine HCl (ATARAX) 10 MG tablet Take 1 tablet by mouth every 4 hours as needed 4 Active betamethasone dipropionate 0.05 % lotion 4 Active ketoconazole (NIZORAL) 2 % shampoo 4 Active Active Problems Problem Noted Date Diagnosed Date Artificial knee joint present 12/13/2022 Carpal tunnel syndrome, bilateral 12/13/2022 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 12/13/2022 Primary osteoarthritis, right hand 12/13/2022 Ankle pain 10/08/2022 Arthralgia of hip 10/08/2022 Basal cell carcinoma (BCC) 10/08/2022 Overview (10/08/2022): left ear region Depressive disorder 10/08/2022 Deviated nasal septum 10/08/2022 Dizziness 10/08/2022 Esophageal reflux 10/08/2022 Gastritis and gastroduodenitis 10/08/2022 Gastroesophageal reflux disease 10/08/2022 Pancreatitis 10/08/2022 Follicular adenoma of thyroid gland 10/08/2022 Gastric ulcer 10/08/2022 Glaucoma 10/08/2022 Hyperlipidemia 10/08/2022 Gout 10/08/2022 Hyperuricemia 10/08/2022 Impacted cerumen 10/08/2022 Malignant neoplasm of breast 10/08/2022 Melanoma of skin 10/08/2022 Obesity with body mass index 30 or greater 10/08 Onychomycosis of toenail 10/08/2022 Osteoarthritis of left knee 10/08/2022 Osteopenia 10/08/2022 Pain of toe 10/08/2022 Mixed conductive and sensorineural hearing loss 10/08/2022 Sensorineural hearing loss (SNHL) of both ears 0 10/08/2022 Shoulder pain 10/08/2022 Thyroid nodule 10/08/2022 Uncontrolled type 2 diabetes mellitus 10/08/2022 Malignant neoplastic disease 10/08/2022 Chronic obstructive pulmonary disease 10/08/2022 Benign hypertension 10/08/2022 Type 2 diabetes mellitus 10/08/2022 Hypertensive disorder 10/08/2022 Snoring 10/08/2022 Weight increased 10/08/2022 Callus of foot 03/01/2022 Overview (10/08/2022): Comment on above: left foot second toe Abrasion of forehead 01/23/2022 Fracture of multiple ribs 01/13/2022 Overview (10/08/2022): Comment on above: anterior 3-6 Fracture of multiple ribs of left side 2 Overview (10/08/2022): anterior 3-6 COVID-19 11/17/2021 ESME (middle ear effusion) 03/21/2020 Dermatitis of face 07/17/2019 Hyperkalemia 10/02/2018 High alkaline phosphatase 07/11/2018 Otomycosis of right ear 06/23/2018 S/p bilateral myringotomy with tube placement Chronic low back pain 05/19/2018 ETD (Eustachian tube dysfunction), bilateral Stage 3a chronic kidney disease 07/22/2017 Chest pain High blood pressure Diabetes mellitus Overview (02/26/2011): Type II. History of scarlet fever Chronic obstructive pulmonary disease Snores Fatigue Weight gain Cancer Immunizations Immunization Administration Dates Next Due COVID-19, MODERNA BLUE borde r, Primary or Immunocompromised, (age 12y+), IM, 100 mcg/0.5mL 07/29/2020,07/01/2020 TDaP, ADACEL (age 10y-64y), BOOSTRIX (age 10y+), IM, 0.5mL 12/09/2018 Family History Medical History Relation Name Comments Breast Cancer Mother Breast Cancer Sister Relation Name Status Comments Mother Sister Social History Tobacco Use Types Packs/Day Years Used Date Smoking Tobacco: Unknown Smokeless Tobacco: Never Tobacco Cessation:Counseling Given: No Comments No Sex and Gender Information Value Date Recorded Sex Assigned at Not on file Legal Sex Female 11:33 AM EST Gender Identity Not on file Sexual Orientation Not on file Last Filed Vital Signs Vital Sign Reading Time Taken Comments Blood Pressure 132/74 07/12/2023 11:46 AM EDT Pulse 82 07/12/2023 11:46 AM EDT Temperature - - Respiratory Rate - - Oxygen Saturation 98% 07/12/2023 11:46 AM EDT Inhaled Oxygen Concentration - - Weight 86.4 kg (190 lb 6.4 oz) 07/12/2023 11:46 AM EDT Height 162.6 cm (5' 4 ) 02/27/2011 1:49 PM EST Body Mass Index - - Plan of Treatment Health Maintenance Due Date Last Done Comments Depression Monitoring 1958 Hepatitis C screen 1964 Pneumococcal 50+ years Vaccine (1 of 2 - PCV) 1965 Shingles vaccine (1 of 2) 1996 DEXA (modify frequency per FRAX score) 2001 Lipids 01/26/2012 01/25/2011 Respiratory Syncytial Virus (RSV) or age 60 yrs+ (1 - 1-dose 75+ series) 2021 Annual Wellness Visit (Medicare) 03/18/2023 COVID-19 Vaccine (3 - season) 2023 07/29/2020, 07/01/2020 Diabetic Alb to Cr ratio (uACR) test 07/07/2024 07/08/2023, 10/01/2022, 02/27/2022 GFR test (Diabetes, CKD 3-4, OR last GFR 15-59) 07/07/2024 07/08/2023, 05/13/2023, 10/01/2022, Additional history exists Flu vaccine (#1) 11/20/2024 DTaP/Tdap/Td vaccine (2 - Td or Tdap) 12/09/2028 12/09/2018 Breast cancer screen Discontinued 07/11/2023, 07/09/2022, 07/05/2021, Additional history exists Hepatitis A vaccine Aged Out No longe r eligible based on patient's age to complete this topic Hepatitis B vaccine Aged Out No longe r eligible based on patient's age to complete this topic Hib vaccine Aged Out No longer eligi ble based on patient's age to complete this topic Meningococcal (ACWY) vaccine Aged Out No longer eligible based on patient's age to complete this topic Meningococcal B vaccine Aged Out No l onger eligible based on patient's age to complete this topic Polio vaccine Aged Out No longer elig ible based on patient's age to complete this topic Procedures Procedure Name Priority Date/Time Associated Diagnosis Comments JULIANO POLLO DIGITAL SCREEN UNI LEFT Routine 07/11/2023 11:40 AM EDT Visit for screening mammogram BASIC METABOLIC PANEL Routine 07/08/2023 7:04 AM EDT ALBUMIN/CREATININE RATIO, EXTERNAL Routine 07/08/2023 7:04 AM EDT LIPID PANEL STAT 01/25/2011 8:30 AM EDT from Last 3 Months or Most Recently Relevant to Health Maintenance Results * JULIANO POLLO DIGITAL SCREEN UNI LEFT (07/11/2023 11:40 AM EDT) Anatomical Region Laterality Modality Breast Left Mammography Impressions 07/14/2023 2:29 PM EDT No mammographic evidence of malignancy. A 1 year screening mammogram is recommended. A result letter will be sent to the patient. She will also receive a reminder 1 month prior to her next mammogram. Given the finding of dense breast tissue, this patient is a candidate for automated whole breast screening ultrasound (ABUS) to aid in breast cancer detection. BI-RADS CATEGORY 2: BENIGN FINDINGS. Management Recommendation: Routine annual mammography. This report has been created using voice recognition software. It may contain minor errors which are inherent in voice recognition technology. Final report electronically signed by Dr. Gilmar Josue on 07/14/2023 2:29 PM Narrative 07/14/2023 2:29 PM EDT LOCATION: [place] PROCEDURE: JULIANO POLLO DIGITAL SCREEN UNI LEFT CLINICAL INFORMATION: Visit for screening mammogram. Tomosynthesis. PATIENT MEDICAL HISTORY: Medical history includes breast cancer. FAMILY HISTORY: Family medical history includes breast cancer in 2 relatives (mother, sister). RISK VALUES: Tyrer-Cuzick 10yr.: na%, Tyrer-Cuzick life: na% COMPARISON: 07/09/2022, 07/05/2021, 07/04/2020, 07/02/2019, 06/30/2018 TECHNIQUE: Unilateral left CC, LM and MLO views of the breast were obtained. 3D tomosynthesis was utilized. CAD was utilized. BREAST COMPOSITION: The breasts are heterogeneously dense, which may obscure small masses. FINDINGS: There are benign-appearing calcifications in the left breast.There are vascular calcifications on the left breast.Stable scattered nodular densities within the left breast are noted. No significant masses, calcifications, or other findings are seen in the breast(s). There has been no significant interval change. us Mammography Self Referral IMG MAMMOGRAPHY ORDERA BLES Final Result * Microalbumin/Creatinine Ratio, External (07/08/2023 7:04 AM EDT) Narrative Nickie Brownlee LPN - 07/08/2023 7:04 AM EDT Albumin urine 18.7 Albumin/crea ratio 395 us April E HemPrevotygarn DO URINE ORDERABLES Edited Res ult - Final * Basic Metabolic Panel (07/08/2023 7:04 AM EDT) Sodium 139 mmol/L Chloride 105 mmol/L Potassium 4.7 mmol/L BUN 22 mg/dL Creatinine 0.9 Glucose 109 mg/dL CO2 23 mmol/L Calcium 9.4 mg/dL Est, Glom Filt Rate 62 Blood BLOOD SPECIMEN / Unknown us April E HemPrevotylulun DO CHEMISTRY ORDERABLES Edited Result - Final * (ABNORMAL) Lipid panel (01/25/2011 8:30 AM EDT) Cholesterol, Total 215(H) 100 - 199 mg/dl [facility] Comment: <200 Desirable 200 - 239 Borderline High >239 High Triglycerides 143 0 - 199 mg/dl [facility] Comment: <150 Desirable 150 - 199 Borderline High 200 - 499 High >449 Very High Ranges are based upon NCEP/ATP III guidelines. HDL 40 mg/dl [facility] Comment: Refer to General Chemistry for CHOL and TRIG results. HDL CLASSIFICATIONS FOR PATIENTS > 20 YEARS OLD. <40 Undesirable (Major Risk Factor) >60 Protective (Negative Risk Factor) LDL Calculated 146 mg/dl [facility] Comment: Refer to General Chemistry for CHOL and TRIG results. LDL CLASSIFICATIONS FOR PATIENTS >20 YEARS OLD: Determination Invalid if TRIG >400 <100 Optimal 100 - 129 Near or Above Optimal 130 - 159 Borderline High 160 - 189 High Risk >189 Very High Risk 01/25/2011 8:30 AM EDT 01/25/2011 8:37 AM EDT us Unknown Provider Result CHEMISTRY ORDERABLES Fin al Result [facility] [address] [place] [address], [facility] [phone] from Last 3 Months or Most Recently Relevant to Health Maintenance Insurance MEDICARE Member Subscriber Plan / Payer (Ef fective 2011-Present) Name:Mary Maldonado Relation to Subscriber:Self Name:Mary Maldonado Payer ID:Not on file Group ID:Not on file Type:Not on file Address: [address] Care Teams Greenhouse Technician Relationship Specialty Start Date End Date Zafar Alcala MD PCP - General Family Medicine 12/14/10
--- OUTSIDE RECORDS SUMMARY | 2024-11-03 13:47 | XMS_ITS | Encounter Summary ---
Author Organization [facility] Address [address] [place] [address] Care Team Providers Care Quill Stripper Name Role Phone Zafar Alcala MD Primary Care Provider [phone] Encounter Details Date Type Department Care Team (Latest Contact Info) Description 07/12/2021 Transcribe Orders [facility] PRE ACCESS [address] [phone] Boy Mario, DO [address] [place] [id number] Screening mammogram for high-risk patient (Primary Dx) Social History Tobacco Use Types Packs/Day Years Used Date Smoking Tobacco: Unknown Smokeless Tobacco: Never Comments No Sex and Gender Information Value Date Recorded Sex Assigned at Not on file Legal Sex Female 11:33 AM EST Gender Identity Not on file Sexual Orientation Not on file documented as of this encounter Plan of Treatment Not on file documented as of this encounter Visit Diagnoses Diagnosis Screening mammogram for high-risk patient- Primary documented in this encounter Care Teams Quill Stripper Relationship Specialty Start Date End Date Zafar Alcala MD PCP - General Family Medicine 12/14/10 documented as of this encounter
--- OUTSIDE RECORDS SUMMARY | 2024-11-03 13:47 | XMS_ITS | Encounter Summary ---
Author [facility] Address [address] [place] [address] Care Team Providers Care Warehouse Shift Supervisor Name Role Phone Zafar Alcala MD Primary Care Provider [phone] Encounter Details Date Type Department Care Team (Late st Contact Info) Description 07/16/2022 Transcribe Orders [facility] PRE ACCESS [address] [phone] Boy Mario, DO [address] [place] [address] Social History Tobacco Use Types Packs/Day Years [...] documented as of this encounter Visit Diagnoses Not on filedocumented in this encounter Care Teams Warehouse Shift Supervisor Relationship Specialty Start Date End Date Zafar Alcala MD PCP - General Family Medicine 12/14/10 documented as of this encounter
== END 2024-11-03 23:59 | disposition home or self-care (01) ==
LOC: RAD 13:29
PROVIDERS: PCP Internal Medicine Adolescent Medicine; Visit Provider Nurse Practitioner Family
DX: N63.42 Unspecified lump in left breast, subareolar (principal); N63.22 Unspecified lump in the left breast, upper inner quadrant; N63.24 Unspecified lump in the left breast, lower inner quadrant; R92.8 Other abnormal and inconclusive findings on diagnostic imaging of breast; R92.322 Mammographic fibroglandular density, left breast
CPT/HCPCS: 76641; 77061; 77065; G0279